=== PATIENT | female | born 1990 | race Two or more races ===

== ENCOUNTER → 2018-01-01 | Emergency (ER) | payer OTHER ==
[~2018-01-01] VITALS: Ht 167.6 cm; Wt 75.3 kg
[~2018-01-01] MED LIST: CELEBREX100 MG PO; FLONASE16 GM NS; OSEL75CA PO; ZYRTEC10 MG PO
== END | disposition home or self-care (01) ==
LOC: ER 20:45
DX: M54.2 Cervicalgia (principal); M25.511 Pain in right shoulder; M54.89 Other dorsalgia

== ENCOUNTER 2024-09-09 09:32 | Outpatient (CLI) | payer OTHER | END 2024-09-09 09:37 | disposition home or self-care (01) | LOC: PRENATAL 09:32 | PROVIDERS: ATTEND Obstetrics & Gynecology Maternal & Fetal Medicine | DX: O44.00 Complete placenta previa NOS or without hemorrhage, unspecified trimester (principal); O28.3 Abnormal ultrasonic finding on antenatal screening of mother; Z3A.25 25 weeks gestation of pregnancy ==

== ENCOUNTER → 2024-10-10 10:07 | Outpatient (CLI) | payer OTHER | END | disposition home or self-care (01) | LOC: PRENATAL 10:07 | PROVIDERS: ATTEND Obstetrics & Gynecology Maternal & Fetal Medicine | DX: O26.849 Uterine size-date discrepancy, unspecified trimester (principal); O28.3 Abnormal ultrasonic finding on antenatal screening of mother; O36.5990 Maternal care for other known or suspected poor fetal growth, unspecified trimester, not applicable or unspecified; Z3A.28 28 weeks gestation of pregnancy ==